=== PATIENT | female | born 1995 | race Caucasian/White ===

== ENCOUNTER 2025-03-23 14:02 | Emergency (ER) | payer OTHER, SELFPAY ==
[2025-03-23 14:03] VITALS: BP 114/74; PULSE 87; TEMP 36.6; O2SAT 99; BMI 17.2
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
[2025-03-23 15:53] VITALS: BP 108/72; PULSE 90; O2SAT 99
== END 2025-03-23 15:57 | disposition home or self-care (01) ==
PROVIDERS: Emergency Provider Emergency Medicine
DX: T14.8XXA Other injury of unspecified body region, initial encounter (principal); S40.212A Abrasion of left shoulder, initial encounter; V48.5XXA Car driver injured in noncollision transport accident in traffic accident, initial encounter
CPT/HCPCS: 70450; 71045; 72125; 73030; 73562; 76376; 99284